=== PATIENT | male | born 1955 | race Caucasian/White ===

== ENCOUNTER 2018-09-17 21:29 | Inpatient (IN) | payer OTHER ==
[2018-09-17 22:21] LABS: ADD MAN DIFF? NO
[2018-09-17 22:25] LABS: BASOPHILS % 0.5 % (0.0-2.0); EOSINOPHILS # 0.2 10^3/ul (0.0-0.5); EOSINOPHILS % 4.4 % (0.0-7.0); HEMATOCRIT 23.9 % (42.0-52.0); HEMOGLOBIN 7.6 g/dl (14.0-18.0); LYMPHOCYTES % 18.7 % (15.0-51.0); MEAN CORPUSCULAR HEMOGLOBIN 30.8 pg (29.0-33.0); MEAN CORPUSCULAR HGB CONC 31.8 g/dl (32.0-37.0); MEAN CORPUSCULAR VOLUME 96.8 fl (82.0-101.0); MEAN PLATELET VOLUME 9.9 fl (7.4-10.4); MONOCYTE # 0.5 10^3/ul (0.3-0.9); MONOCYTES % 8.4 % (0.0-11.0); NEUTROPHIL # 3.7 10^3/ul (1.6-7.5); NEUTROPHILS % 67.5 % (39.0-77.0); PLATELET COUNT 174 10^3/UL (140-415); RED BLOOD COUNT 2.47 10^6/ul (4.70-6.10); RED CELL DISTRIBUTION WIDTH 13.9 % (11.5-14.5)
[2018-09-17 22:25] LABS: WHITE BLOOD COUNT 5.5 10^3/ul (4.8-10.8)
[2018-09-17 22:45] LABS: ANION GAP 10 (5-13); BLOOD UREA NITROGEN 89 mg/dl (7-20); CALCIUM 8.3 mg/dl (8.4-10.2); CARBON DIOXIDE 20 mmol/L (21-31); CHLORIDE 110 mmol/L (97-110); CREATININE 4.07 mg/dl (0.61-1.24); Estimated GFR 15 mL/min (>60); GLUCOSE 137 mg/dl (70-220); SODIUM 140 mmol/L (135-144)
[2018-09-17 22:57] LABS: B-TYPE NATRIURETIC PEPTIDE 6930 PG/ML (0-125); TROPONIN-I < 0.012 ng/ml (0.000-0.120)
[2018-09-17] MEDS ORDERED: ACETAMINOPHEN 325 MG TAB PO (23:30)
[2018-09-18] MEDS: ONDANSETRON 4 MG INJ IV ×2 (02:22→10:02)
[2018-09-18] MEDS ORDERED: NACL 0.9% 3 ML SYG IV (07:00)
[2018-09-18] MEDS ORDERED: ACETAMINOPHEN 325 MG TAB PO (07:00)
[2018-09-18] MEDS ORDERED: ALBUTEROL/IPRATROPIUM (NEB) 3 ML AMP HHN (07:00)
[2018-09-18 08:19] LABS: ADD MAN DIFF? NO
[2018-09-18 08:24] LABS: BASOPHILS % 0.7 % (0.0-2.0); EOSINOPHILS # 0.2 10^3/ul (0.0-0.5); EOSINOPHILS % 3.3 % (0.0-7.0); HEMATOCRIT 23.6 % (42.0-52.0); HEMOGLOBIN 7.6 g/dl (14.0-18.0); LYMPHOCYTES # 0.8 10^3/ul (0.8-2.9); MEAN CORPUSCULAR HEMOGLOBIN 31.4 pg (29.0-33.0); MEAN CORPUSCULAR HGB CONC 32.2 g/dl (32.0-37.0); MEAN CORPUSCULAR VOLUME 97.5 fl (82.0-101.0); MEAN PLATELET VOLUME 9.8 fl (7.4-10.4); MONOCYTE # 0.5 10^3/ul (0.3-0.9); MONOCYTES % 7.8 % (0.0-11.0); NEUTROPHIL # 4.3 10^3/ul (1.6-7.5); NEUTROPHILS % 73.9 % (39.0-77.0); PLATELET COUNT 164 10^3/UL (140-415); RED BLOOD COUNT 2.42 10^6/ul (4.70-6.10); RED CELL DISTRIBUTION WIDTH 13.8 % (11.5-14.5)
[2018-09-18 08:24] LABS: WHITE BLOOD COUNT 5.8 10^3/ul (4.8-10.8)
[2018-09-18 08:31] LABS: HEMOGLOBIN A1C 6.3 % (0-5.9)
[2018-09-18 08:43] LABS: ALANINE AMINOTRANSFERASE 79 IU/L (13-69); ALBUMIN 3.6 g/dl (3.3-4.9); ALBUMIN/GLOBULIN RATIO 1.02; ALKALINE PHOSPHATASE 164 IU/L (42-121); ANION GAP 9 (5-13); ASPARTATE AMINO TRANSFERASE 44 IU/L (15-46); BILIRUBIN,INDIRECT 0.4 mg/dl (0-1.1); BILIRUBIN,TOTAL 0.4 mg/dl (0.2-1.3); BLOOD UREA NITROGEN 87 mg/dl (7-20); CALCIUM 8.4 mg/dl (8.4-10.2); CARBON DIOXIDE 20 mmol/L (21-31); CHLORIDE 114 mmol/L (97-110); CHOL/HDL RATIO 2.2 RATIO; CHOLESTEROL 89 mg/dl (100-200); CREATININE 4.18 mg/dl (0.61-1.24); Estimated GFR 14 mL/min (>60); GLUCOSE 123 mg/dl (70-220); HDL CHOLESTEROL 40 mg/dl (30-78); LDL CHOLESTEROL,CALCULATED 37 mg/dl; MAGNESIUM 2.6 mg/dl (1.7-2.5); POTASSIUM 5.4 mmol/L (3.5-5.1); SODIUM 143 mmol/L (135-144); TOTAL PROTEIN 7.1 g/dl (6.1-8.1); TRIGLYCERIDES 60 mg/dl (0-149)
[2018-09-18] MEDS: SOD CHLORIDE 0.9% 1,000 ML IV ×2 (08:50→20:03)
[2018-09-18] MEDS: FERROUS SULFATE (EC) 325 MG TAB PO (08:51)
[2018-09-18] MEDS: FOLIC ACID 1 MG TAB PO (08:51)
[2018-09-18] MEDS: GABAPENTIN 300 MG CAP PO (08:51)
[2018-09-18] MEDS: ATENOLOL 50 MG TAB PO (08:52)
[2018-09-18] MEDS: HEPARIN 5,000 UNIT/1 ML VIAL SC ×2 (08:53→20:48)
[2018-09-18] MEDS: ALBUMIN HUMAN 25% 100 ML IV (09:50)
[2018-09-18] MEDS ORDERED: NA POLYST SULFON 15 GM/60 ML BTL PO (11:00)
[2018-09-18] MEDS: SODIUM POLYSTYRENE 15 GM KIT (POWDER + SORBITOL) PO (11:43)
[2018-09-18] MEDS: NA BICARBONATE 650 MG TAB PO ×2 (17:05→20:03)
[2018-09-18] MEDS: ATORVASTATIN 10 MG TAB PO (20:04)
[2018-09-19] MEDS: SOD CHLORIDE 0.9% 1,000 ML IV (00:25)
[2018-09-19 07:01] LABS: ABNORMAL IP MESSAGE 1; HEMATOCRIT 21.4 % (42.0-52.0); MEAN CORPUSCULAR HEMOGLOBIN 30.8 pg (29.0-33.0); MEAN CORPUSCULAR HGB CONC 30.8 g/dl (32.0-37.0); PLATELET COUNT 147 10^3/UL (140-415); POSITIVE DIFF @See below; RED BLOOD COUNT 2.14 10^6/ul (4.70-6.10); RED CELL DISTRIBUTION WIDTH 14.1 % (11.5-14.5)
[2018-09-19 07:01] LABS: WHITE BLOOD COUNT 5.4 10^3/ul (4.8-10.8)
[2018-09-19 07:06] LABS: ADD MAN DIFF? YES; HEMOGLOBIN 6.6 g/dl (14.0-18.0)
[2018-09-19 07:07] LABS: PATH REVIEW? YES
[2018-09-19 07:15] LABS: IRON 19 ug/dl (35-150)
[2018-09-19 07:17] LABS: ANION GAP 5 (5-13); BLOOD UREA NITROGEN 78 mg/dl (7-20); CALCIUM 7.9 mg/dl (8.4-10.2); CARBON DIOXIDE 22 mmol/L (21-31); CHLORIDE 116 mmol/L (97-110); CREATININE 4.21 mg/dl (0.61-1.24); Estimated GFR 14 mL/min (>60); GLUCOSE 131 mg/dl (70-220); MAGNESIUM 2.5 mg/dl (1.7-2.5); PHOSPHORUS 4.8 mg/dl (2.5-4.9); POTASSIUM 4.9 mmol/L (3.5-5.1); SODIUM 143 mmol/L (135-144)
[2018-09-19 07:25] LABS: % IRON SATURATION 12 % SAT (22-52); TOTAL IRON BINDING CAPACITY 164 ug/dl (241-421)
[2018-09-19 07:36] LABS: ANISOCYTOSIS 1+ (0-0); EOSINOPHILS % (M) 2 % (0-7); LYMPHOCYTES #M 0.9 10^3/ul (0.8-2.9); LYMPHOCYTES % (M) 17 % (15-51); MONOCYTE #M 0.3 10^3/ul (0.3-0.9); MONOCYTES % (M) 7 % (0-11); PLATELET ESTIMATE NORMAL; POLYCHROMASIA 1+ (0-0); SEGMENTED NEUTROPHILS (M) % 74 % (39-77); SMUDGE%M 1 % (0-0)
[2018-09-19] MEDS: GABAPENTIN 300 MG CAP PO (08:15)
[2018-09-19] MEDS: CALCITRIOL 0.25 MCG CAP PO (08:15)
[2018-09-19] MEDS: NA BICARBONATE 650 MG TAB PO ×4 (08:15→20:15)
[2018-09-19] MEDS: PANTOPRAZOLE (EC) 40 MG TAB PO (08:16)
[2018-09-19] MEDS: ATENOLOL 50 MG TAB PO (08:16)
[2018-09-19] MEDS: ASPIRIN (EC) 81 MG TAB PO (08:16)
[2018-09-19] MEDS: FOLIC ACID 1 MG TAB PO (08:16)
[2018-09-19] MEDS: FERROUS SULFATE (EC) 325 MG TAB PO (08:16)
[2018-09-19] MEDS: AMLODIPINE 10 MG TAB PO (08:16)
[2018-09-19] MEDS: HEPARIN 5,000 UNIT/1 ML VIAL SC ×2 (08:17→20:36)
[2018-09-19 08:21] LABS: ADD UMIC YES; UR ASCORBIC ACID NEGATIVE (NEGATIVE); UR BILIRUBIN (Dip) NEGATIVE (NEGATIVE); UR BLOOD (Dip) NEGATIVE (NEGATIVE); UR CLARITY CLEAR (CLEAR); UR COLOR YELLOW (YELLOW); UR GLUCOSE (Dip) NEGATIVE (NEGATIVE); UR KETONES (Dip) NEGATIVE (NEGATIVE); UR LEUKOCYTE ESTERASE (Dip) NEGATIVE Leu/ul (NEGATIVE); UR NITRITE (Dip) NEGATIVE (NEGATIVE); UR RBC 1 /HPF (0-5); UR SPECIFIC GRAVITY (Dip) 1.012 (1.003-1.030); UR TOTAL PROTEIN (Dip) 1+ mg/dl (NEGATIVE); UR UROBILINOGEN (Dip) NEGATIVE (NEGATIVE); UR WBC 0 /HPF (0-5)
[2018-09-19 08:38] LABS: CREATININE,URINE RANDOM 66.76 mg/dl (20-370)
[2018-09-19 08:38] LABS: SODIUM,URINE RANDOM 43 mmol/L (30-90)
[2018-09-19 08:42] LABS: POTASSIUM,URINE RANDOM 34.2 mmol/L (25-125)
[2018-09-19 08:42] LABS: SODIUM,URINE RANDOM 43 mmol/L (30-90)
[2018-09-19 09:12] LABS: OCCULT BLOOD STOOL NEGATIVE (NEGATIVE)
[2018-09-19] MEDS: BUMETANIDE 1 MG INJ IV (09:40)
[2018-09-19] MEDS: SOD FERRIC GLUC COMPLX 125 MG in SOD CHLORIDE 0.9% 100 ML IVPB (14:16)
[2018-09-19 14:28] LABS: CREATINE KINASE 88 IU/L (23-200)
[2018-09-19 14:40] LABS: TROPONIN-I < 0.012 ng/ml (0.000-0.120)
[2018-09-19] MEDS: EPOETIN ALFA-EPBX (NON-ESRD 10,000 UNIT/ML VIAL SC (16:37)
[2018-09-19 18:15] LABS: HEMATOCRIT 24.3 % (42.0-52.0); HEMOGLOBIN 7.6 g/dl (14.0-18.0)
[2018-09-19 18:37] LABS: CREATINE KINASE 86 IU/L (23-200)
[2018-09-19 18:52] LABS: CK INDEX 1.1; CK-MB 0.95 ng/ml (0.0-2.4); TROPONIN-I < 0.012 ng/ml (0.000-0.120)
[2018-09-19] MEDS: ATORVASTATIN 10 MG TAB PO (20:15)
[2018-09-20 06:25] LABS: ADD MAN DIFF? NO
[2018-09-20 06:29] LABS: WHITE BLOOD COUNT 5.7 10^3/ul (4.8-10.8)
[2018-09-20 06:29] LABS: BASOPHILS % 0.7 % (0.0-2.0); EOSINOPHILS # 0.2 10^3/ul (0.0-0.5); EOSINOPHILS % 3.1 % (0.0-7.0); HEMATOCRIT 24.1 % (42.0-52.0); HEMOGLOBIN 7.5 g/dl (14.0-18.0); LYMPHOCYTES # 0.8 10^3/ul (0.8-2.9); LYMPHOCYTES % 13.8 % (15.0-51.0); MEAN CORPUSCULAR HEMOGLOBIN 30.4 pg (29.0-33.0); MEAN CORPUSCULAR HGB CONC 31.1 g/dl (32.0-37.0); MEAN CORPUSCULAR VOLUME 97.6 fl (82.0-101.0); MEAN PLATELET VOLUME 10.2 fl (7.4-10.4); MONOCYTE # 0.4 10^3/ul (0.3-0.9); MONOCYTES % 7.7 % (0.0-11.0); NEUTROPHIL # 4.3 10^3/ul (1.6-7.5); NEUTROPHILS % 74.2 % (39.0-77.0); PLATELET COUNT 148 10^3/UL (140-415); RED BLOOD COUNT 2.47 10^6/ul (4.70-6.10)
[2018-09-20 06:53] LABS: ALANINE AMINOTRANSFERASE 54 IU/L (13-69); ALBUMIN 3.2 g/dl (3.3-4.9); ALKALINE PHOSPHATASE 99 IU/L (42-121); ASPARTATE AMINO TRANSFERASE 19 IU/L (15-46); BILIRUBIN,INDIRECT 0.4 mg/dl (0-1.1); BILIRUBIN,TOTAL 0.4 mg/dl (0.2-1.3); TOTAL PROTEIN 5.8 g/dl (6.1-8.1)
[2018-09-20 06:56] LABS: ANION GAP 6 (5-13); BLOOD UREA NITROGEN 81 mg/dl (7-20); CARBON DIOXIDE 23 mmol/L (21-31); CHLORIDE 113 mmol/L (97-110); CREATININE 4.54 mg/dl (0.61-1.24); Estimated GFR 13 mL/min (>60); GLUCOSE 123 mg/dl (70-220); MAGNESIUM 2.4 mg/dl (1.7-2.5); PHOSPHORUS 4.9 mg/dl (2.5-4.9); POTASSIUM 4.7 mmol/L (3.5-5.1); SODIUM 142 mmol/L (135-144)
[2018-09-20] MEDS: FOLIC ACID 1 MG TAB PO (08:25)
[2018-09-20] MEDS: AMLODIPINE 10 MG TAB PO (08:25)
[2018-09-20] MEDS: GABAPENTIN 300 MG CAP PO (08:25)
[2018-09-20] MEDS: ASPIRIN (EC) 81 MG TAB PO (08:25)
[2018-09-20] MEDS: NA BICARBONATE 650 MG TAB PO ×4 (08:25→21:31)
[2018-09-20] MEDS: ATENOLOL 50 MG TAB PO (08:25)
[2018-09-20] MEDS: BUMETANIDE 1 MG INJ IV (08:26)
[2018-09-20] MEDS: FERROUS SULFATE (EC) 325 MG TAB PO (08:26)
[2018-09-20] MEDS: CALCITRIOL 0.25 MCG CAP PO (08:26)
[2018-09-20] MEDS: PANTOPRAZOLE (EC) 40 MG TAB PO (08:28)
[2018-09-20] MEDS: HEPARIN 5,000 UNIT/1 ML VIAL SC ×2 (08:34→22:56)
[2018-09-20] MEDS: SOD FERRIC GLUC COMPLX 125 MG in SOD CHLORIDE 0.9% 100 ML IVPB (13:00)
[2018-09-20 13:53] LABS: IMMEDIATE SPIN CROSSMATCH 1 3
[2018-09-20 17:17] LABS: CREATININE, RANDOM URINE 63 mg/dL (20-320); MICROALBUMIN 28.1 mg/dL; MICROALBUMIN/CREATININE RATIO 446 (<30)
[2018-09-20] MEDS: FUROSEMIDE 20 MG INJ IV (18:10)
[2018-09-20] MEDS: ATORVASTATIN 10 MG TAB PO (21:31)
[2018-09-21 06:52] LABS: ANION GAP 9 (5-13); BLOOD UREA NITROGEN 87 mg/dl (7-20); CALCIUM 8.1 mg/dl (8.4-10.2); CARBON DIOXIDE 22 mmol/L (21-31); CHLORIDE 111 mmol/L (97-110); CREATININE 4.53 mg/dl (0.61-1.24); Estimated GFR 13 mL/min (>60); GLUCOSE 144 mg/dl (70-220); MAGNESIUM 2.3 mg/dl (1.7-2.5); PHOSPHORUS 5.1 mg/dl (2.5-4.9); POTASSIUM 5.2 mmol/L (3.5-5.1); SODIUM 142 mmol/L (135-144)
[2018-09-21] MEDS: PANTOPRAZOLE (EC) 40 MG TAB PO (08:27)
[2018-09-21] MEDS: FERROUS SULFATE (EC) 325 MG TAB PO (08:28)
[2018-09-21] MEDS: NA BICARBONATE 650 MG TAB PO ×4 (08:28→20:14)
[2018-09-21] MEDS: FOLIC ACID 1 MG TAB PO (08:28)
[2018-09-21] MEDS: ASPIRIN (EC) 81 MG TAB PO (08:28)
[2018-09-21] MEDS: ATENOLOL 50 MG TAB PO (08:28)
[2018-09-21] MEDS: CALCITRIOL 0.25 MCG CAP PO (08:28)
[2018-09-21] MEDS: GABAPENTIN 300 MG CAP PO (08:28)
[2018-09-21] MEDS: BUMETANIDE 1 MG INJ IV (08:28)
[2018-09-21] MEDS: AMLODIPINE 10 MG TAB PO (08:28)
[2018-09-21] MEDS: HEPARIN 5,000 UNIT/1 ML VIAL SC ×2 (08:33→20:23)
[2018-09-21] MEDS: SEVELAMER CARBONATE 800 MG TABLET PO ×2 (11:53→17:12)
[2018-09-21] MEDS: SOD FERRIC GLUC COMPLX 125 MG in SOD CHLORIDE 0.9% 100 ML IVPB (12:18)
[2018-09-21] MEDS: ALBUMIN HUMAN 25% 100 ML IV (17:14)
[2018-09-21] MEDS: EPOETIN ALFA-EPBX (NON-ESRD 10,000 UNIT/ML VIAL SC (17:15)
[2018-09-21 18:04] LABS: AADO2 Arterial 105.4 mmHg (7.0-24.0); Allen Test ACCEPTAB; Arterial Base Excess -3.8 mmol/L (-3.0-3); Arterial Blood Gas Oxygen Sat 89.1 mmHG (95.0-98.0); Arterial COHb 0 % (0.0-3.0); Arterial Fraction of Oxyhgb 88.7 % (93.0-99.0); Arterial HCO3 21.6 mmol/L (22.0-26.0); Arterial MetHb 0.5 % (0.0-1.5); Arterial pCO2 40.6 mmhg (35-45); MODE NASAL CANNULA; Site Left Radial
[2018-09-21 18:26] LABS: ANION GAP 9 (5-13); BLOOD UREA NITROGEN 86 mg/dl (7-20); CARBON DIOXIDE 22 mmol/L (21-31); CHLORIDE 109 mmol/L (97-110); CREATININE 4.55 mg/dl (0.61-1.24); Estimated GFR 13 mL/min (>60); GLUCOSE 184 mg/dl (70-220); POTASSIUM 5.2 mmol/L (3.5-5.1); SODIUM 140 mmol/L (135-144)
[2018-09-21] MEDS: BUMETANIDE 3 MG in DEXTROSE 5% 18 ML IV (20:13)
[2018-09-21] MEDS: ATORVASTATIN 10 MG TAB PO (20:14)
[2018-09-22 07:58] LABS: ADD MAN DIFF? NO
[2018-09-22 08:12] LABS: WHITE BLOOD COUNT 6.2 10^3/ul (4.8-10.8)
[2018-09-22 08:12] LABS: BASOPHILS % 0.6 % (0.0-2.0); EOSINOPHILS # 0.2 10^3/ul (0.0-0.5); EOSINOPHILS % 2.6 % (0.0-7.0); HEMATOCRIT 26.9 % (42.0-52.0); HEMOGLOBIN 8.6 g/dl (14.0-18.0); LYMPHOCYTES # 0.7 10^3/ul (0.8-2.9); LYMPHOCYTES % 11.4 % (15.0-51.0); MEAN CORPUSCULAR HEMOGLOBIN 30.7 pg (29.0-33.0); MEAN CORPUSCULAR VOLUME 96.1 fl (82.0-101.0); MEAN PLATELET VOLUME 10.2 fl (7.4-10.4); MONOCYTE # 0.6 10^3/ul (0.3-0.9); MONOCYTES % 9.5 % (0.0-11.0); NEUTROPHIL # 4.6 10^3/ul (1.6-7.5); NEUTROPHILS % 74.5 % (39.0-77.0); PLATELET COUNT 153 10^3/UL (140-415); RED CELL DISTRIBUTION WIDTH 15.5 % (11.5-14.5)
[2018-09-22] MEDS: SEVELAMER CARBONATE 800 MG TABLET PO ×3 (08:23→17:36)
[2018-09-22] MEDS: CALCITRIOL 0.25 MCG CAP PO (08:23)
[2018-09-22 08:24] LABS: ANION GAP 11 (5-13); BLOOD UREA NITROGEN 92 mg/dl (7-20); CALCIUM 8.2 mg/dl (8.4-10.2); CARBON DIOXIDE 21 mmol/L (21-31); CHLORIDE 110 mmol/L (97-110); CREATININE 4.52 mg/dl (0.61-1.24); Estimated GFR 13 mL/min (>60); GLUCOSE 139 mg/dl (70-220); MAGNESIUM 2.3 mg/dl (1.7-2.5); SODIUM 142 mmol/L (135-144)
[2018-09-22] MEDS: FERROUS SULFATE (EC) 325 MG TAB PO (08:24)
[2018-09-22] MEDS: PANTOPRAZOLE (EC) 40 MG TAB PO (08:24)
[2018-09-22] MEDS: NA BICARBONATE 650 MG TAB PO (08:24)
[2018-09-22] MEDS: GABAPENTIN 300 MG CAP PO (08:24)
[2018-09-22] MEDS: AMLODIPINE 10 MG TAB PO (08:24)
[2018-09-22] MEDS: FOLIC ACID 1 MG TAB PO (08:24)
[2018-09-22] MEDS: ASPIRIN (EC) 81 MG TAB PO (08:24)
[2018-09-22] MEDS: ATENOLOL 50 MG TAB PO (08:25)
[2018-09-22] MEDS: BUMETANIDE 1 MG INJ IV (08:27)
[2018-09-22] MEDS: HEPARIN 5,000 UNIT/1 ML VIAL SC ×2 (08:46→20:28)
[2018-09-22] MEDS ORDERED: BUMETANIDE 1 MG INJ IV (09:00)
[2018-09-22] MEDS: SOD FERRIC GLUC COMPLX 125 MG in SOD CHLORIDE 0.9% 100 ML IVPB (13:25)
[2018-09-22] MEDS: BUMETANIDE 2 MG in DEXTROSE 5% 17 ML IV (17:37)
[2018-09-22] MEDS: ATORVASTATIN 10 MG TAB PO (20:25)
[2018-09-23 06:48] LABS: ADD MAN DIFF? NO
[2018-09-23] MEDS: BUMETANIDE 2 MG in DEXTROSE 5% 17 ML IV ×2 (06:51→17:09)
[2018-09-23 06:54] LABS: WHITE BLOOD COUNT 6.6 10^3/ul (4.8-10.8)
[2018-09-23 06:54] LABS: BASOPHILS % 0.6 % (0.0-2.0); EOSINOPHILS # 0.2 10^3/ul (0.0-0.5); HEMATOCRIT 26.1 % (42.0-52.0); HEMOGLOBIN 8.4 g/dl (14.0-18.0); LYMPHOCYTES % 14.4 % (15.0-51.0); MEAN CORPUSCULAR HEMOGLOBIN 31.2 pg (29.0-33.0); MEAN CORPUSCULAR HGB CONC 32.2 g/dl (32.0-37.0); MEAN PLATELET VOLUME 10.3 fl (7.4-10.4); MONOCYTE # 0.6 10^3/ul (0.3-0.9); MONOCYTES % 9.1 % (0.0-11.0); NEUTROPHIL # 4.7 10^3/ul (1.6-7.5); NEUTROPHILS % 71.5 % (39.0-77.0); NUCLEATED RED BLOOD CELLS% 0.6 /100WBC (0.0-0.0); PLATELET COUNT 149 10^3/UL (140-415); RED BLOOD COUNT 2.69 10^6/ul (4.70-6.10); RED CELL DISTRIBUTION WIDTH 15.8 % (11.5-14.5)
[2018-09-23 07:14] LABS: MAGNESIUM 2.2 mg/dl (1.7-2.5)
[2018-09-23 07:14] LABS: PHOSPHORUS 4.8 mg/dl (2.5-4.9)
[2018-09-23 07:19] LABS: ANION GAP 9 (5-13); BLOOD UREA NITROGEN 98 mg/dl (7-20); CALCIUM 8.3 mg/dl (8.4-10.2); CARBON DIOXIDE 23 mmol/L (21-31); CHLORIDE 108 mmol/L (97-110); CREATININE 4.91 mg/dl (0.61-1.24); Estimated GFR 12 mL/min (>60); GLUCOSE 126 mg/dl (70-220); POTASSIUM 4.9 mmol/L (3.5-5.1); SODIUM 140 mmol/L (135-144)
[2018-09-23] MEDS: SEVELAMER CARBONATE 800 MG TABLET PO ×3 (08:05→17:14)
[2018-09-23] MEDS: FERROUS SULFATE (EC) 325 MG TAB PO (08:05)
[2018-09-23] MEDS: PANTOPRAZOLE (EC) 40 MG TAB PO (08:05)
[2018-09-23] MEDS: GABAPENTIN 300 MG CAP PO (08:05)
[2018-09-23] MEDS: CALCITRIOL 0.25 MCG CAP PO (08:05)
[2018-09-23] MEDS: AMLODIPINE 10 MG TAB PO (08:05)
[2018-09-23] MEDS: FOLIC ACID 1 MG TAB PO (08:06)
[2018-09-23] MEDS: ATENOLOL 50 MG TAB PO (08:06)
[2018-09-23] MEDS: ASPIRIN (EC) 81 MG TAB PO (08:06)
[2018-09-23] MEDS: HEPARIN 5,000 UNIT/1 ML VIAL SC ×2 (08:10→20:44)
[2018-09-23] MEDS: SOD FERRIC GLUC COMPLX 125 MG in SOD CHLORIDE 0.9% 100 ML IVPB (12:43)
[2018-09-23] MEDS: EPOETIN ALFA-EPBX (NON-ESRD 10,000 UNIT/ML VIAL SC (17:08)
[2018-09-23] MEDS: ATORVASTATIN 10 MG TAB PO (20:38)
[2018-09-24] MEDS: BUMETANIDE 2 MG in DEXTROSE 5% 17 ML IV ×2 (05:02→18:56)
[2018-09-24 07:06] LABS: ADD MAN DIFF? NO
[2018-09-24 07:09] LABS: BASOPHIL # 0.1 10^3/ul (0.0-0.1); BASOPHILS % 0.9 % (0.0-2.0); EOSINOPHILS # 0.2 10^3/ul (0.0-0.5); EOSINOPHILS % 3.1 % (0.0-7.0); HEMOGLOBIN 8.5 g/dl (14.0-18.0); LYMPHOCYTES # 0.8 10^3/ul (0.8-2.9); LYMPHOCYTES % 13.9 % (15.0-51.0); MEAN CORPUSCULAR HEMOGLOBIN 30.4 pg (29.0-33.0); MEAN CORPUSCULAR HGB CONC 31.5 g/dl (32.0-37.0); MEAN CORPUSCULAR VOLUME 96.4 fl (82.0-101.0); MEAN PLATELET VOLUME 10.5 fl (7.4-10.4); MONOCYTE # 0.5 10^3/ul (0.3-0.9); MONOCYTES % 8.2 % (0.0-11.0); NEUTROPHIL # 4.2 10^3/ul (1.6-7.5); NEUTROPHILS % 72.7 % (39.0-77.0); PLATELET COUNT 160 10^3/UL (140-415); RED CELL DISTRIBUTION WIDTH 15.9 % (11.5-14.5)
[2018-09-24 07:09] LABS: WHITE BLOOD COUNT 5.8 10^3/ul (4.8-10.8)
[2018-09-24 07:30] LABS: MAGNESIUM 2.2 mg/dl (1.7-2.5)
[2018-09-24 07:30] LABS: PHOSPHORUS 4.8 mg/dl (2.5-4.9)
[2018-09-24 07:32] LABS: ANION GAP 9 (5-13); BLOOD UREA NITROGEN 104 mg/dl (7-20); CALCIUM 8.4 mg/dl (8.4-10.2); CARBON DIOXIDE 22 mmol/L (21-31); CHLORIDE 106 mmol/L (97-110); CREATININE 5.44 mg/dl (0.61-1.24); Estimated GFR 11 mL/min (>60); GLUCOSE 210 mg/dl (70-220); POTASSIUM 4.7 mmol/L (3.5-5.1); SODIUM 137 mmol/L (135-144)
[2018-09-24] MEDS: SEVELAMER CARBONATE 800 MG TABLET PO ×3 (10:19→18:56)
[2018-09-24] MEDS: GABAPENTIN 300 MG CAP PO (10:20)
[2018-09-24] MEDS: FERROUS SULFATE (EC) 325 MG TAB PO (10:20)
[2018-09-24] MEDS: PANTOPRAZOLE (EC) 40 MG TAB PO (10:20)
[2018-09-24] MEDS: FOLIC ACID 1 MG TAB PO (10:20)
[2018-09-24] MEDS: CALCITRIOL 0.25 MCG CAP PO (10:20)
[2018-09-24] MEDS: ASPIRIN (EC) 81 MG TAB PO (10:20)
[2018-09-24] MEDS: ATENOLOL 50 MG TAB PO (10:21)
[2018-09-24] MEDS: AMLODIPINE 10 MG TAB PO (10:21)
[2018-09-24] MEDS: HEPARIN 5,000 UNIT/1 ML VIAL SC ×2 (10:40→20:34)
[2018-09-24] MEDS: ATORVASTATIN 10 MG TAB PO (20:28)
[2018-09-25] MEDS: BUMETANIDE 2 MG in DEXTROSE 5% 17 ML IV ×3 (05:14→17:21)
[2018-09-25] MEDS: SEVELAMER CARBONATE 800 MG TABLET PO ×3 (08:07→17:21)
[2018-09-25] MEDS: PANTOPRAZOLE (EC) 40 MG TAB PO (08:07)
[2018-09-25] MEDS: GABAPENTIN 300 MG CAP PO (08:07)
[2018-09-25] MEDS: CALCITRIOL 0.25 MCG CAP PO (08:07)
[2018-09-25] MEDS: ATENOLOL 50 MG TAB PO (08:08)
[2018-09-25] MEDS: AMLODIPINE 10 MG TAB PO (08:08)
[2018-09-25] MEDS: FERROUS SULFATE (EC) 325 MG TAB PO (08:08)
[2018-09-25] MEDS: FOLIC ACID 1 MG TAB PO (08:09)
[2018-09-25] MEDS: ASPIRIN (EC) 81 MG TAB PO (08:09)
[2018-09-25] MEDS: HEPARIN 5,000 UNIT/1 ML VIAL SC ×2 (09:21→20:07)
[2018-09-25 12:42] LABS: ANION GAP 12 (5-13); BLOOD UREA NITROGEN 108 mg/dl (7-20); CALCIUM 8.5 mg/dl (8.4-10.2); CARBON DIOXIDE 22 mmol/L (21-31); CHLORIDE 104 mmol/L (97-110); CREATININE 5.29 mg/dl (0.61-1.24); Estimated GFR 11 mL/min (>60); GLUCOSE 209 mg/dl (70-220); POTASSIUM 4.4 mmol/L (3.5-5.1); SODIUM 138 mmol/L (135-144)
[2018-09-25] MEDS: ATORVASTATIN 10 MG TAB PO (20:01)
[2018-09-26] MEDS: FERROUS SULFATE (EC) 325 MG TAB PO (08:46)
[2018-09-26] MEDS: SEVELAMER CARBONATE 800 MG TABLET PO ×2 (08:46→12:33)
[2018-09-26] MEDS: ASPIRIN (EC) 81 MG TAB PO (08:47)
[2018-09-26] MEDS: PANTOPRAZOLE (EC) 40 MG TAB PO (08:47)
[2018-09-26] MEDS: FOLIC ACID 1 MG TAB PO (08:47)
[2018-09-26] MEDS: CALCITRIOL 0.25 MCG CAP PO (08:47)
[2018-09-26] MEDS: GABAPENTIN 300 MG CAP PO (08:47)
[2018-09-26] MEDS: AMLODIPINE 10 MG TAB PO (08:47)
[2018-09-26] MEDS: ATENOLOL 50 MG TAB PO (08:48)
[2018-09-26 09:02] LABS: ANION GAP 13 (5-13); BLOOD UREA NITROGEN 115 mg/dl (7-20); CALCIUM 8.9 mg/dl (8.4-10.2); CARBON DIOXIDE 23 mmol/L (21-31); CHLORIDE 104 mmol/L (97-110); Estimated GFR 11 mL/min (>60); GLUCOSE 171 mg/dl (70-220); POTASSIUM 4.8 mmol/L (3.5-5.1); SODIUM 140 mmol/L (135-144)
[2018-09-26] MEDS: HEPARIN 5,000 UNIT/1 ML VIAL SC (09:30)
[2018-09-26] MEDS: BUMETANIDE 2 MG in DEXTROSE 5% 17 ML IV (10:45)
== END 2018-09-26 16:16 | disposition home or self-care (01) | DRG 291 ==
LOC: TEL 09-18 13:36 → E/R 21:29 → TEL 23:18
PROC: 30233N1 Transfusion of Nonautologous Red Blood Cells into Peripheral Vein, Percutaneous Approach (ICD-10-PCS; principal; 2018-09-19)
DX: I13.2 Hypertensive heart and chronic kidney disease with heart failure and with stage 5 chronic kidney disease, or end stage renal disease (principal); I50.33 Acute on chronic diastolic (congestive) heart failure; N17.9 Acute kidney failure, unspecified; E87.2 Acidosis; N18.5 Chronic kidney disease, stage 5; D63.1 Anemia in chronic kidney disease; E87.5 Hyperkalemia; E11.22 Type 2 diabetes mellitus with diabetic chronic kidney disease; E78.5 Hyperlipidemia, unspecified; E83.39 Other disorders of phosphorus metabolism
CPT/HCPCS: 36415; 36430; 36600; 71045; 76705; 76775; 80048; 80053; 80061; 80076; 81001; 81003; 82043; 82270; 82436; 82550; 82553; 82728; 82803; 82962; 83036; 83540; 83735; 83880; 84100; 84133; 84155; 84300; 84443; 84484; 85014; 85018; 85025; 86850; 86900; 86901; 86920; 93005; 93306; 99285-25

== ENCOUNTER 2018-09-28 15:41 | Inpatient (IN) | payer OTHER ==
[2018-09-28 20:19] LABS: ADD UMIC YES; UR ASCORBIC ACID NEGATIVE (NEGATIVE); UR BILIRUBIN (Dip) NEGATIVE (NEGATIVE); UR BLOOD (Dip) NEGATIVE (NEGATIVE); UR CLARITY CLEAR (CLEAR); UR COLOR YELLOW (YELLOW); UR GLUCOSE (Dip) NEGATIVE (NEGATIVE); UR KETONES (Dip) NEGATIVE (NEGATIVE); UR LEUKOCYTE ESTERASE (Dip) NEGATIVE Leu/ul (NEGATIVE); UR NITRITE (Dip) NEGATIVE (NEGATIVE); UR RBC 0 /HPF (0-5); UR SPECIFIC GRAVITY (Dip) 1.011 (1.003-1.030); UR TOTAL PROTEIN (Dip) 1+ mg/dl (NEGATIVE); UR UROBILINOGEN (Dip) NEGATIVE (NEGATIVE); UR WBC 0 /HPF (0-5)
[2018-09-28 20:29] LABS: ADD MAN DIFF? NO
[2018-09-28] MEDS ORDERED: morphine 2 MG INJ IV (20:30)
[2018-09-28] MEDS ORDERED: ONDANSETRON 4 MG INJ IV (20:30)
[2018-09-28] MEDS ORDERED: MAGNESIUM HYDROXIDE 30ML CUP PO (20:30)
[2018-09-28] MEDS ORDERED: hydrALAzine 20 MG INJ IV (20:30)
[2018-09-28] MEDS ORDERED: DOCUSATE SODIUM 100 MG CAP PO (20:30)
[2018-09-28] MEDS ORDERED: ACETAMINOPHEN 325 MG TAB PO (20:30)
[2018-09-28] MEDS ORDERED: LORAZEPAM 2 MG INJ IV (20:30)
[2018-09-28] MEDS ORDERED: NITROGLYCERIN (SL) 0.4 MG TAB SL (20:30)
[2018-09-28] MEDS ORDERED: HYDROCODONE/APAP (5/325) TAB PO (20:30)
[2018-09-28] MEDS ORDERED: ALBUTEROL/IPRATROPIUM (NEB) 3 ML AMP HHN (20:30)
[2018-09-28] MEDS ORDERED: NACL 0.9% 3 ML SYG IV (20:30)
[2018-09-28 20:32] LABS: WHITE BLOOD COUNT 5.6 10^3/ul (4.8-10.8)
[2018-09-28 20:32] LABS: BASOPHIL # 0.1 10^3/ul (0.0-0.1); BASOPHILS % 0.9 % (0.0-2.0); EOSINOPHILS # 0.2 10^3/ul (0.0-0.5); EOSINOPHILS % 3.8 % (0.0-7.0); HEMATOCRIT 29.6 % (42.0-52.0); HEMOGLOBIN 9.5 g/dl (14.0-18.0); LYMPHOCYTES # 0.9 10^3/ul (0.8-2.9); LYMPHOCYTES % 15.3 % (15.0-51.0); MEAN CORPUSCULAR HEMOGLOBIN 30.9 pg (29.0-33.0); MEAN CORPUSCULAR HGB CONC 32.1 g/dl (32.0-37.0); MEAN CORPUSCULAR VOLUME 96.4 fl (82.0-101.0); MEAN PLATELET VOLUME 10.8 fl (7.4-10.4); MONOCYTE # 0.4 10^3/ul (0.3-0.9); MONOCYTES % 7.9 % (0.0-11.0); NEUTROPHILS % 71.4 % (39.0-77.0); PLATELET COUNT 198 10^3/UL (140-415); RED BLOOD COUNT 3.07 10^6/ul (4.70-6.10); RED CELL DISTRIBUTION WIDTH 16.9 % (11.5-14.5)
[2018-09-28 20:44] LABS: ALANINE AMINOTRANSFERASE 69 IU/L (13-69); ALBUMIN 3.9 g/dl (3.3-4.9); ALBUMIN/GLOBULIN RATIO 1.18; ALKALINE PHOSPHATASE 150 IU/L (42-121); ANION GAP 13 (5-13); ASPARTATE AMINO TRANSFERASE 49 IU/L (15-46); BILIRUBIN,INDIRECT 0.5 mg/dl (0-1.1); BILIRUBIN,TOTAL 0.5 mg/dl (0.2-1.3); BLOOD UREA NITROGEN 118 mg/dl (7-20); CARBON DIOXIDE 21 mmol/L (21-31); CHLORIDE 108 mmol/L (97-110); CREATININE 4.74 mg/dl (0.61-1.24); Estimated GFR 12 mL/min (>60); GLUCOSE 139 mg/dl (70-220); LIPASE 89 U/L (23-300); POTASSIUM 4.4 mmol/L (3.5-5.1); SODIUM 142 mmol/L (135-144); TOTAL PROTEIN 7.2 g/dl (6.1-8.1)
[2018-09-28 20:51] LABS: INR 0.98; PARTIAL THROMBOPLASTIN TIME 30.2 Sec (23.0-35.0); PROTIME 13.1 Sec (11.9-14.9)
[2018-09-28 20:56] LABS: TROPONIN-I < 0.012 ng/ml (0.000-0.120)
[2018-09-28] MEDS ORDERED: GLUCOSE GEL 15 GRAM TUBE PO ×2 (21:00)
[2018-09-28] MEDS: LEVOFLOXACIN 750MG/D5W (PMX) 150 ML IVPB (21:00)
[2018-09-28] MEDS ORDERED: GLUCAGON 1 MG INJ IM (21:00)
[2018-09-28] MEDS ORDERED: GLUCOSE GEL 15 GRAM TUBE BUCCAL (21:00)
[2018-09-28] MEDS ORDERED: DEXTROSE 50% 50 ML SYRINGE IV ×2 (21:00)
[2018-09-28] MEDS ORDERED: LEVOFLOXACIN 750MG/D5W (PMX) 150 ML IVPB (21:00)
[2018-09-28 21:02] LABS: FREE T4 (FREE THYROXINE) 1.34 ng/dl (0.78-2.44)
[2018-09-28] MEDS: HEPARIN 5,000 UNIT/1 ML VIAL SC (23:33)
[2018-09-28] MEDS: ATORVASTATIN 10 MG TAB PO (23:33)
[2018-09-29] MEDS: INSULIN ASPART [NOVOLOG] 3 ML PEN SC ×5 (01:00→18:29)
[2018-09-29] MEDS ORDERED: ACCU-CHEK XX (02:00)
[2018-09-29 06:10] LABS: ADD MAN DIFF? NO
[2018-09-29 06:12] LABS: BASOPHIL # 0.1 10^3/ul (0.0-0.1); BASOPHILS % 1.1 % (0.0-2.0); EOSINOPHILS # 0.2 10^3/ul (0.0-0.5); EOSINOPHILS % 5.1 % (0.0-7.0); HEMATOCRIT 28.5 % (42.0-52.0); HEMOGLOBIN 9.1 g/dl (14.0-18.0); LYMPHOCYTES # 0.8 10^3/ul (0.8-2.9); MEAN CORPUSCULAR HGB CONC 31.9 g/dl (32.0-37.0); MEAN CORPUSCULAR VOLUME 96.9 fl (82.0-101.0); MEAN PLATELET VOLUME 10.6 fl (7.4-10.4); MONOCYTE # 0.4 10^3/ul (0.3-0.9); MONOCYTES % 8.2 % (0.0-11.0); NEUTROPHIL # 3.3 10^3/ul (1.6-7.5); PLATELET COUNT 182 10^3/UL (140-415); RED BLOOD COUNT 2.94 10^6/ul (4.70-6.10)
[2018-09-29 06:12] LABS: WHITE BLOOD COUNT 4.8 10^3/ul (4.8-10.8)
[2018-09-29 06:42] LABS: HEMOGLOBIN A1C 5.9 % (0-5.9)
[2018-09-29 06:51] LABS: ANION GAP 10 (5-13); BLOOD UREA NITROGEN 113 mg/dl (7-20); CALCIUM 8.8 mg/dl (8.4-10.2); CARBON DIOXIDE 22 mmol/L (21-31); CHLORIDE 112 mmol/L (97-110); CREATININE 4.37 mg/dl (0.61-1.24); Estimated GFR 14 mL/min (>60); GLUCOSE 120 mg/dl (70-220); MAGNESIUM 2.3 mg/dl (1.7-2.5); PHOSPHORUS 5.3 mg/dl (2.5-4.9); POTASSIUM 4.3 mmol/L (3.5-5.1); SODIUM 144 mmol/L (135-144)
[2018-09-29 07:02] LABS: CHOL/HDL RATIO 2.3 RATIO; HDL CHOLESTEROL 38 mg/dl (30-78); LDL CHOLESTEROL,CALCULATED 35 mg/dl; TRIGLYCERIDES 81 mg/dl (0-149)
[2018-09-29 07:02] LABS: CHOLESTEROL 89 mg/dl (100-200)
[2018-09-29] MEDS ORDERED: NON-FORMULARY/PATIENT OWN MED (Omeprazole* 20 MG) PO (09:00)
[2018-09-29] MEDS: HEPARIN 5,000 UNIT/1 ML VIAL SC ×2 (09:00→23:06)
[2018-09-29] MEDS: BUMETANIDE 1 MG INJ IV ×2 (13:19→18:00)
[2018-09-29] MEDS: AMLODIPINE 10 MG TAB PO (13:19)
[2018-09-29] MEDS ORDERED: HEPARIN 1000 UNITS/NS (A-LINE) 1,000 ML (14:11)
[2018-09-29] MEDS ORDERED: SOD CHLORIDE 0.9% 500 ML (14:11)
[2018-09-29] MEDS ORDERED: LIDOCAINE 1% (MDV) 20 ML INJ (14:11)
[2018-09-29] MEDS ORDERED: IODIXANOL LOCM 100 ML BTL (14:11)
[2018-09-29] MEDS ORDERED: MIDAZOLAM 1 MG/ML 2 ML INJ (14:11)
[2018-09-29] MEDS ORDERED: HEPARIN 1000 UNITS/ML 10 ML INJ (14:11)
[2018-09-29] MEDS ORDERED: FENTAnyl 50 MCG/ML VIAL (14:12)
[2018-09-29] MEDS: ASPIRIN (EC) 81 MG TAB PO (16:00)
[2018-09-29] MEDS: LANSOPRAZOLE 30 MG CAP PO (16:00)
[2018-09-29] MEDS: ATENOLOL 50 MG TAB PO (16:00)
[2018-09-29] MEDS: CALCITRIOL 0.25 MCG CAP PO (16:00)
[2018-09-29] MEDS: FERROUS SULFATE (EC) 325 MG TAB PO (16:00)
[2018-09-29] MEDS: FOLIC ACID 1 MG TAB PO (16:00)
[2018-09-29] MEDS: GABAPENTIN 300 MG CAP PO (16:00)
[2018-09-29] MEDS: SEVELAMER CARBONATE 800 MG TABLET PO (18:26)
[2018-09-29] MEDS ORDERED: ALBUMIN HUMAN 25% 100 ML IV (20:30)
[2018-09-29] MEDS: MANNITOL 25% 50 ML IV (20:30)
[2018-09-29 20:32] LABS: HEPATITIS B SURFACE ANTIGEN NEGATIVE (NEGATIVE)
[2018-09-29 20:49] LABS: HEPATITIS B SURFACE ANTIBODY NEGATIVE (NEGATIVE)
[2018-09-29] MEDS: Insulin NOVOLOG SS MILD Algorithm (SS with meals and bedtime) SC (21:00)
[2018-09-29] MEDS ORDERED: INSULIN ASPART [NOVOLOG] 3 ML PEN SC (21:00)
[2018-09-29] MEDS: HEPARIN 1000 UNITS/ML 10 ML INJ CATHETER (22:51)
[2018-09-29] MEDS: ATORVASTATIN 10 MG TAB PO (23:00)
[2018-09-30 05:37] LABS: ADD MAN DIFF? NO
[2018-09-30 05:43] LABS: WHITE BLOOD COUNT 4.6 10^3/ul (4.8-10.8)
[2018-09-30 05:43] LABS: ABNORMAL IP MESSAGE 1; BASOPHIL # 0.1 10^3/ul (0.0-0.1); BASOPHILS % 1.1 % (0.0-2.0); EOSINOPHILS # 0.2 10^3/ul (0.0-0.5); HEMATOCRIT 30.6 % (42.0-52.0); HEMOGLOBIN 9.9 g/dl (14.0-18.0); LYMPHOCYTES # 0.6 10^3/ul (0.8-2.9); MEAN CORPUSCULAR HEMOGLOBIN 30.6 pg (29.0-33.0); MEAN CORPUSCULAR HGB CONC 32.4 g/dl (32.0-37.0); MEAN CORPUSCULAR VOLUME 94.4 fl (82.0-101.0); MEAN PLATELET VOLUME 10.2 fl (7.4-10.4); MONOCYTE # 0.4 10^3/ul (0.3-0.9); MONOCYTES % 9.5 % (0.0-11.0); NEUTROPHIL # 3.3 10^3/ul (1.6-7.5); PLATELET COUNT 177 10^3/UL (140-415); POSITIVE DIFF @See below; RED BLOOD COUNT 3.24 10^6/ul (4.70-6.10); RED CELL DISTRIBUTION WIDTH 16.6 % (11.5-14.5)
[2018-09-30 06:09] LABS: ANION GAP 8 (5-13); BLOOD UREA NITROGEN 72 mg/dl (7-20); CALCIUM 8.7 mg/dl (8.4-10.2); CARBON DIOXIDE 27 mmol/L (21-31); CHLORIDE 108 mmol/L (97-110); CREATININE 3.14 mg/dl (0.61-1.24); Estimated GFR 20 mL/min (>60); GLUCOSE 137 mg/dl (70-220); SODIUM 143 mmol/L (135-144)
[2018-09-30] MEDS: LANSOPRAZOLE 30 MG CAP PO (06:52)
[2018-09-30] MEDS: BUMETANIDE 1 MG INJ IV ×2 (06:52→17:57)
[2018-09-30] MEDS: CALCITRIOL 0.25 MCG CAP PO (08:21)
[2018-09-30] MEDS: GABAPENTIN 300 MG CAP PO (08:21)
[2018-09-30] MEDS: AMLODIPINE 10 MG TAB PO (08:22)
[2018-09-30] MEDS: ASPIRIN (EC) 81 MG TAB PO (08:22)
[2018-09-30] MEDS: FOLIC ACID 1 MG TAB PO (08:22)
[2018-09-30] MEDS: ATENOLOL 50 MG TAB PO (08:22)
[2018-09-30] MEDS: SEVELAMER CARBONATE 800 MG TABLET PO ×3 (08:22→17:56)
[2018-09-30] MEDS: FERROUS SULFATE (EC) 325 MG TAB PO (08:22)
[2018-09-30] MEDS: HEPARIN 5,000 UNIT/1 ML VIAL SC ×2 (08:33→23:26)
[2018-09-30] MEDS: INSULIN ASPART [NOVOLOG] 3 ML PEN SC ×3 (08:33→18:07)
[2018-09-30] MEDS: Insulin NOVOLOG SS MILD Algorithm (SS with meals and bedtime) SC ×4 (08:34→22:54)
[2018-09-30] MEDS: HEPARIN 1000 UNITS/ML 10 ML INJ CATHETER (22:12)
[2018-09-30] MEDS: LEVOFLOXACIN 500MG/D5W (PMX) 100 ML IVPB (22:55)
[2018-09-30] MEDS: ATORVASTATIN 10 MG TAB PO (22:56)
[2018-10-01] MEDS: LANSOPRAZOLE 30 MG CAP PO (06:00)
[2018-10-01] MEDS: BUMETANIDE 1 MG INJ IV (06:00)
[2018-10-01 06:04] LABS: ADD MAN DIFF? NO
[2018-10-01 06:09] LABS: BASOPHILS % 0.9 % (0.0-2.0); EOSINOPHILS # 0.2 10^3/ul (0.0-0.5); EOSINOPHILS % 4.1 % (0.0-7.0); HEMATOCRIT 31.8 % (42.0-52.0); HEMOGLOBIN 10.1 g/dl (14.0-18.0); LYMPHOCYTES # 0.9 10^3/ul (0.8-2.9); LYMPHOCYTES % 18.5 % (15.0-51.0); MEAN CORPUSCULAR HEMOGLOBIN 30.1 pg (29.0-33.0); MEAN CORPUSCULAR HGB CONC 31.8 g/dl (32.0-37.0); MEAN CORPUSCULAR VOLUME 94.9 fl (82.0-101.0); MEAN PLATELET VOLUME 10.5 fl (7.4-10.4); MONOCYTE # 0.6 10^3/ul (0.3-0.9); MONOCYTES % 12.4 % (0.0-11.0); NEUTROPHIL # 2.9 10^3/ul (1.6-7.5); NEUTROPHILS % 63.7 % (39.0-77.0); PLATELET COUNT 166 10^3/UL (140-415); RED BLOOD COUNT 3.35 10^6/ul (4.70-6.10); RED CELL DISTRIBUTION WIDTH 16.4 % (11.5-14.5)
[2018-10-01 06:09] LABS: WHITE BLOOD COUNT 4.6 10^3/ul (4.8-10.8)
[2018-10-01 06:26] LABS: ANION GAP 7 (5-13); BLOOD UREA NITROGEN 45 mg/dl (7-20); CALCIUM 8.9 mg/dl (8.4-10.2); CARBON DIOXIDE 27 mmol/L (21-31); CHLORIDE 107 mmol/L (97-110); CREATININE 3.01 mg/dl (0.61-1.24); Estimated GFR 21 mL/min (>60); GLUCOSE 119 mg/dl (70-220); POTASSIUM 4.3 mmol/L (3.5-5.1); SODIUM 141 mmol/L (135-144)
[2018-10-01] MEDS: FOLIC ACID 1 MG TAB PO (08:51)
[2018-10-01] MEDS: FERROUS SULFATE (EC) 325 MG TAB PO (08:52)
[2018-10-01] MEDS: GABAPENTIN 300 MG CAP PO (08:52)
[2018-10-01] MEDS: AMLODIPINE 10 MG TAB PO (08:52)
[2018-10-01] MEDS: ASPIRIN (EC) 81 MG TAB PO (08:52)
[2018-10-01] MEDS: ATENOLOL 50 MG TAB PO (08:52)
[2018-10-01] MEDS: Insulin NOVOLOG SS MILD Algorithm (SS with meals and bedtime) SC ×4 (08:54→20:34)
[2018-10-01] MEDS: INSULIN ASPART [NOVOLOG] 3 ML PEN SC ×2 (08:55→17:45)
[2018-10-01] MEDS: HEPARIN 5,000 UNIT/1 ML VIAL SC ×2 (08:55→21:00)
[2018-10-01] MEDS: SEVELAMER CARBONATE 800 MG TABLET PO ×3 (08:57→17:43)
[2018-10-01] MEDS: CALCITRIOL 0.25 MCG CAP PO (10:34)
[2018-10-01] MEDS: LINAGLIPTIN 5 MG TABLET PO (12:44)
[2018-10-01 14:15] LABS: HEPATITIS C VIRAL ANTIBODY NEGATIVE (NEGATIVE)
[2018-10-01 14:58] LABS: RAPID PLASMA REAGIN NONREACTIVE (NR)
[2018-10-01] MEDS: EPOETIN ALFA-EPBX (ESRD) 10,000 UNIT/ML VIAL SC (18:17)
[2018-10-01] MEDS: GABAPENTIN 400 MG CAP PO (20:32)
[2018-10-01] MEDS: ATORVASTATIN 10 MG TAB PO (20:32)
[2018-10-02] MEDS: HEPARIN 1000 UNITS/ML 10 ML INJ CATHETER (02:03)
[2018-10-02 05:25] LABS: ADD MAN DIFF? NO
[2018-10-02 05:36] LABS: WHITE BLOOD COUNT 6.2 10^3/ul (4.8-10.8)
[2018-10-02 05:36] LABS: BASOPHIL # 0.1 10^3/ul (0.0-0.1); EOSINOPHILS # 0.2 10^3/ul (0.0-0.5); EOSINOPHILS % 3.7 % (0.0-7.0); HEMATOCRIT 33.1 % (42.0-52.0); HEMOGLOBIN 10.6 g/dl (14.0-18.0); LYMPHOCYTES # 0.9 10^3/ul (0.8-2.9); LYMPHOCYTES % 14.3 % (15.0-51.0); MEAN CORPUSCULAR HEMOGLOBIN 30.2 pg (29.0-33.0); MEAN CORPUSCULAR VOLUME 94.3 fl (82.0-101.0); MEAN PLATELET VOLUME 10.5 fl (7.4-10.4); MONOCYTE # 0.6 10^3/ul (0.3-0.9); MONOCYTES % 10.4 % (0.0-11.0); NEUTROPHIL # 4.3 10^3/ul (1.6-7.5); NEUTROPHILS % 70.1 % (39.0-77.0); PLATELET COUNT 182 10^3/UL (140-415); RED BLOOD COUNT 3.51 10^6/ul (4.70-6.10); RED CELL DISTRIBUTION WIDTH 16.2 % (11.5-14.5)
[2018-10-02] MEDS: LANSOPRAZOLE 30 MG CAP PO (05:58)
[2018-10-02 06:24] LABS: IONIZED CALCIUM 1.1 mmol/L (1.1-1.4)
[2018-10-02 06:24] LABS: ANION GAP 6 (5-13); BLOOD UREA NITROGEN 25 mg/dl (7-20); CALCIUM 8.8 mg/dl (8.4-10.2); CARBON DIOXIDE 31 mmol/L (21-31); CHLORIDE 100 mmol/L (97-110); CREATININE 2.19 mg/dl (0.61-1.24); Estimated GFR 30 mL/min (>60); GLUCOSE 134 mg/dl (70-220); SODIUM 137 mmol/L (135-144)
[2018-10-02] MEDS: Insulin NOVOLOG SS MILD Algorithm (SS with meals and bedtime) SC ×4 (07:00→20:52)
[2018-10-02] MEDS: SEVELAMER CARBONATE 800 MG TABLET PO ×3 (07:49→17:29)
[2018-10-02] MEDS: ASPIRIN (EC) 81 MG TAB PO (07:49)
[2018-10-02] MEDS: ATENOLOL 50 MG TAB PO (07:50)
[2018-10-02] MEDS: FOLIC ACID 1 MG TAB PO (07:50)
[2018-10-02] MEDS: CALCITRIOL 0.25 MCG CAP PO (07:51)
[2018-10-02] MEDS: FERROUS SULFATE (EC) 325 MG TAB PO (07:51)
[2018-10-02] MEDS: LINAGLIPTIN 5 MG TABLET PO (07:51)
[2018-10-02] MEDS: INSULIN ASPART [NOVOLOG] 3 ML PEN SC ×3 (07:54→17:34)
[2018-10-02] MEDS: HEPARIN 5,000 UNIT/1 ML VIAL SC ×2 (07:55→20:55)
[2018-10-02] MEDS: AMLODIPINE 5 MG TAB PO (08:01)
[2018-10-02 10:39] LABS: PARATHYROID HORMONE 227.7 pg/ml (24.0-73.0)
[2018-10-02 20:03] LABS: HEPATITIS B CORE ANTIBODY NEGATIVE (NEGATIVE)
[2018-10-02] MEDS: ATORVASTATIN 10 MG TAB PO (20:51)
[2018-10-02] MEDS: GABAPENTIN 400 MG CAP PO (20:51)
[2018-10-02] MEDS: LEVOFLOXACIN 500MG/D5W (PMX) 100 ML IVPB (20:52)
[2018-10-03] MEDS: LANSOPRAZOLE 30 MG CAP PO (05:46)
[2018-10-03 05:49] LABS: ADD MAN DIFF? NO
[2018-10-03 05:58] LABS: BASOPHIL # 0.1 10^3/ul (0.0-0.1); BASOPHILS % 1.1 % (0.0-2.0); EOSINOPHILS # 0.3 10^3/ul (0.0-0.5); HEMATOCRIT 33.2 % (42.0-52.0); HEMOGLOBIN 10.5 g/dl (14.0-18.0); LYMPHOCYTES # 1.1 10^3/ul (0.8-2.9); LYMPHOCYTES % 20.6 % (15.0-51.0); MEAN CORPUSCULAR HGB CONC 31.6 g/dl (32.0-37.0); MEAN CORPUSCULAR VOLUME 94.9 fl (82.0-101.0); MEAN PLATELET VOLUME 10.7 fl (7.4-10.4); MONOCYTE # 0.6 10^3/ul (0.3-0.9); NEUTROPHIL # 3.2 10^3/ul (1.6-7.5); NEUTROPHILS % 60.9 % (39.0-77.0); PLATELET COUNT 161 10^3/UL (140-415); RED CELL DISTRIBUTION WIDTH 16.1 % (11.5-14.5)
[2018-10-03 05:58] LABS: WHITE BLOOD COUNT 5.3 10^3/ul (4.8-10.8)
[2018-10-03 06:25] LABS: ANION GAP 9 (5-13); BLOOD UREA NITROGEN 46 mg/dl (7-20); CALCIUM 8.6 mg/dl (8.4-10.2); CARBON DIOXIDE 30 mmol/L (21-31); CHLORIDE 99 mmol/L (97-110); CREATININE 3.52 mg/dl (0.61-1.24); Estimated GFR 18 mL/min (>60); GLUCOSE 124 mg/dl (70-220); POTASSIUM 4.4 mmol/L (3.5-5.1); SODIUM 138 mmol/L (135-144)
[2018-10-03] MEDS: Insulin NOVOLOG SS MILD Algorithm (SS with meals and bedtime) SC ×4 (07:00→21:00)
[2018-10-03] MEDS: ATENOLOL 50 MG TAB PO (09:00)
[2018-10-03] MEDS: AMLODIPINE 5 MG TAB PO (09:00)
[2018-10-03] MEDS: HEPARIN 5,000 UNIT/1 ML VIAL SC ×2 (09:00→21:04)
[2018-10-03] MEDS: ASPIRIN (EC) 81 MG TAB PO (09:00)
[2018-10-03] MEDS: SEVELAMER CARBONATE 800 MG TABLET PO ×3 (09:04→17:41)
[2018-10-03] MEDS: CALCITRIOL 0.25 MCG CAP PO (09:04)
[2018-10-03] MEDS: FOLIC ACID 1 MG TAB PO (09:05)
[2018-10-03] MEDS: LINAGLIPTIN 5 MG TABLET PO (09:05)
[2018-10-03] MEDS: FERROUS SULFATE (EC) 325 MG TAB PO (09:05)
[2018-10-03] MEDS: INSULIN ASPART [NOVOLOG] 3 ML PEN SC ×3 (09:11→17:42)
[2018-10-03] MEDS: HEPARIN 1000 UNITS/ML 10 ML INJ CATHETER (10:33)
[2018-10-03] MEDS: hydrOXYzine HCL 25 MG TAB PO (13:03)
[2018-10-03] MEDS: ATORVASTATIN 10 MG TAB PO (21:06)
[2018-10-03] MEDS: GABAPENTIN 400 MG CAP PO (21:06)
[2018-10-04] MEDS: LANSOPRAZOLE 30 MG CAP PO (05:52)
[2018-10-04 05:56] LABS: ADD MAN DIFF? NO
[2018-10-04 05:59] LABS: WHITE BLOOD COUNT 6.5 10^3/ul (4.8-10.8)
[2018-10-04 05:59] LABS: BASOPHILS % 0.6 % (0.0-2.0); EOSINOPHILS # 0.3 10^3/ul (0.0-0.5); EOSINOPHILS % 4.5 % (0.0-7.0); HEMATOCRIT 33.7 % (42.0-52.0); HEMOGLOBIN 10.6 g/dl (14.0-18.0); LYMPHOCYTES % 15.9 % (15.0-51.0); MEAN CORPUSCULAR HEMOGLOBIN 30.7 pg (29.0-33.0); MEAN CORPUSCULAR HGB CONC 31.5 g/dl (32.0-37.0); MEAN CORPUSCULAR VOLUME 97.7 fl (82.0-101.0); MEAN PLATELET VOLUME 10.7 fl (7.4-10.4); MONOCYTE # 0.8 10^3/ul (0.3-0.9); MONOCYTES % 12.2 % (0.0-11.0); NEUTROPHIL # 4.3 10^3/ul (1.6-7.5); NEUTROPHILS % 66.3 % (39.0-77.0); PLATELET COUNT 167 10^3/UL (140-415); RED BLOOD COUNT 3.45 10^6/ul (4.70-6.10)
[2018-10-04 06:28] LABS: ANION GAP 9 (5-13); BLOOD UREA NITROGEN 35 mg/dl (7-20); CALCIUM 8.4 mg/dl (8.4-10.2); CARBON DIOXIDE 28 mmol/L (21-31); CHLORIDE 103 mmol/L (97-110); CREATININE 3.01 mg/dl (0.61-1.24); Estimated GFR 21 mL/min (>60); GLUCOSE 162 mg/dl (70-220); SODIUM 140 mmol/L (135-144)
[2018-10-04 06:29] LABS: PHOSPHORUS 3.5 mg/dl (2.5-4.9)
[2018-10-04 06:29] LABS: MAGNESIUM 2.1 mg/dl (1.7-2.5)
[2018-10-04 06:37] LABS: POTASSIUM 4.2 mmol/L (3.5-5.1)
[2018-10-04] MEDS: Insulin NOVOLOG SS MILD Algorithm (SS with meals and bedtime) SC ×4 (08:15→20:54)
[2018-10-04] MEDS: INSULIN ASPART [NOVOLOG] 3 ML PEN SC ×3 (08:16→17:22)
[2018-10-04] MEDS: LINAGLIPTIN 5 MG TABLET PO (08:19)
[2018-10-04] MEDS: ASPIRIN (EC) 81 MG TAB PO (09:34)
[2018-10-04] MEDS: FERROUS SULFATE (EC) 325 MG TAB PO (09:34)
[2018-10-04] MEDS: SEVELAMER CARBONATE 800 MG TABLET PO ×3 (09:35→17:19)
[2018-10-04] MEDS: AMLODIPINE 5 MG TAB PO (09:35)
[2018-10-04] MEDS: FOLIC ACID 1 MG TAB PO (09:35)
[2018-10-04] MEDS: ATENOLOL 50 MG TAB PO (09:35)
[2018-10-04] MEDS: HEPARIN 5,000 UNIT/1 ML VIAL SC ×2 (09:38→20:55)
[2018-10-04] MEDS: CALCITRIOL 0.25 MCG CAP PO (09:41)
[2018-10-04] MEDS: GABAPENTIN 400 MG CAP PO (20:52)
[2018-10-04] MEDS: ATORVASTATIN 10 MG TAB PO (20:52)
[2018-10-05] MEDS: LANSOPRAZOLE 30 MG CAP PO (06:04)
[2018-10-05 06:30] LABS: ADD MAN DIFF? NO
[2018-10-05 06:34] LABS: BASOPHIL # 0.1 10^3/ul (0.0-0.1); EOSINOPHILS # 0.3 10^3/ul (0.0-0.5); EOSINOPHILS % 4.5 % (0.0-7.0); HEMATOCRIT 33.4 % (42.0-52.0); HEMOGLOBIN 10.7 g/dl (14.0-18.0); LYMPHOCYTES # 1.2 10^3/ul (0.8-2.9); LYMPHOCYTES % 18.3 % (15.0-51.0); MEAN CORPUSCULAR HEMOGLOBIN 31.1 pg (29.0-33.0); MEAN CORPUSCULAR VOLUME 97.1 fl (82.0-101.0); MEAN PLATELET VOLUME 10.6 fl (7.4-10.4); MONOCYTE # 0.6 10^3/ul (0.3-0.9); MONOCYTES % 9.4 % (0.0-11.0); NEUTROPHIL # 4.2 10^3/ul (1.6-7.5); NEUTROPHILS % 66.3 % (39.0-77.0); PLATELET COUNT 168 10^3/UL (140-415); RED BLOOD COUNT 3.44 10^6/ul (4.70-6.10); RED CELL DISTRIBUTION WIDTH 15.7 % (11.5-14.5)
[2018-10-05 06:34] LABS: WHITE BLOOD COUNT 6.3 10^3/ul (4.8-10.8)
[2018-10-05 06:59] LABS: ANION GAP 8 (5-13); BLOOD UREA NITROGEN 49 mg/dl (7-20); CALCIUM 8.9 mg/dl (8.4-10.2); CARBON DIOXIDE 26 mmol/L (21-31); CHLORIDE 104 mmol/L (97-110); CREATININE 3.77 mg/dl (0.61-1.24); Estimated GFR 16 mL/min (>60); GLUCOSE 183 mg/dl (70-220); POTASSIUM 4.4 mmol/L (3.5-5.1); SODIUM 138 mmol/L (135-144)
[2018-10-05 07:04] LABS: PHOSPHORUS 3.9 mg/dl (2.5-4.9)
[2018-10-05 07:04] LABS: MAGNESIUM 2.2 mg/dl (1.7-2.5)
[2018-10-05] MEDS: Insulin NOVOLOG SS MILD Algorithm (SS with meals and bedtime) SC ×3 (07:58→17:28)
[2018-10-05] MEDS: INSULIN ASPART [NOVOLOG] 3 ML PEN SC ×3 (07:59→17:28)
[2018-10-05] MEDS: HEPARIN 5,000 UNIT/1 ML VIAL SC (08:01)
[2018-10-05] MEDS: CALCITRIOL 0.25 MCG CAP PO (08:25)
[2018-10-05] MEDS: SEVELAMER CARBONATE 800 MG TABLET PO ×3 (08:25→17:26)
[2018-10-05] MEDS: FOLIC ACID 1 MG TAB PO (08:25)
[2018-10-05] MEDS: ASPIRIN (EC) 81 MG TAB PO (08:25)
[2018-10-05] MEDS: LINAGLIPTIN 5 MG TABLET PO (08:25)
[2018-10-05] MEDS: FERROUS SULFATE (EC) 325 MG TAB PO (08:25)
[2018-10-05] MEDS: AMLODIPINE 5 MG TAB PO (08:27)
[2018-10-05] MEDS: ATENOLOL 50 MG TAB PO (08:27)
[2018-10-05] MEDS: HEPARIN 1000 UNITS/ML 10 ML INJ CATHETER (12:18)
== END 2018-10-05 20:25 | disposition home or self-care (01) | DRG 291 ==
LOC: 2NE 10-01 04:06 → E/R 15:41 → 6WM 20:19
PROC: 02H633Z Insertion of Infusion Device into Right Atrium, Percutaneous Approach (ICD-10-PCS; principal; 2018-09-29 13:00)
PROC: B543ZZA Ultrasonography of Right Jugular Veins, Guidance (ICD-10-PCS; 2018-09-29 13:00)
PROC: B513ZZA Fluoroscopy of Right Jugular Veins, Guidance (ICD-10-PCS; 2018-09-29 13:00)
PROC: 5A1D70Z Performance of Urinary Filtration, Intermittent, Less than 6 Hours Per Day (ICD-10-PCS; 2018-09-29 13:58)
DX: I13.2 Hypertensive heart and chronic kidney disease with heart failure and with stage 5 chronic kidney disease, or end stage renal disease (principal); J96.01 Acute respiratory failure with hypoxia; N18.6 End stage renal disease; N17.9 Acute kidney failure, unspecified; E87.2 Acidosis; I50.32 Chronic diastolic (congestive) heart failure; E87.79 Other fluid overload; E11.69 Type 2 diabetes mellitus with other specified complication; E78.5 Hyperlipidemia, unspecified; D50.9 Iron deficiency anemia, unspecified; E11.22 Type 2 diabetes mellitus with diabetic chronic kidney disease; E11.42 Type 2 diabetes mellitus with diabetic polyneuropathy; E78.00 Pure hypercholesterolemia, unspecified; D63.1 Anemia in chronic kidney disease; Z79.4 Long term (current) use of insulin; Z79.82 Long term (current) use of aspirin
CPT/HCPCS: 36415; 71045; 80048; 80053; 80061; 81001; 82330; 82962; 83036; 83690; 83735; 83970; 84100; 84439; 84443; 84484; 85025; 85610; 85730; 86592; 86704; 86706; 86708; 86803; 87081; 87340; 90935; 93005; 97110; 97116; 97161; 97530; 99285-25

== ENCOUNTER 2018-10-16 14:31 | Emergency (ER) | payer OTHER, MEDICAID ==
[2018-10-16] MEDS: KETOROLAC 30 MG INJ IM (15:21)
[2018-10-16] MEDS: morphine 2 MG INJ IM (15:21)
[2018-10-16] MEDS: traMADol 50 MG TAB PO (15:21)
== END 2018-10-16 18:07 | disposition home or self-care (01) ==
LOC: FTE 14:31
DX: S52.502A Unspecified fracture of the lower end of left radius, initial encounter for closed fracture (principal); E11.22 Type 2 diabetes mellitus with diabetic chronic kidney disease; S80.01XA Contusion of right knee, initial encounter; I12.0 Hypertensive chronic kidney disease with stage 5 chronic kidney disease or end stage renal disease; N18.5 Chronic kidney disease, stage 5; W01.0XXA Fall on same level from slipping, tripping and stumbling without subsequent striking against object, initial encounter; Y92.9 Unspecified place or not applicable; Z79.4 Long term (current) use of insulin; Z79.82 Long term (current) use of aspirin
CPT/HCPCS: 29125; 73110-LT; 73562; 96372; 99284-25

== ENCOUNTER 2018-12-26 08:18 | Emergency (ER) | payer OTHER, MEDICAID ==
[2018-12-26 09:01] LABS: ADD MAN DIFF? NO
[2018-12-26 09:03] LABS: WHITE BLOOD COUNT 4.7 10^3/ul (4.8-10.8)
[2018-12-26 09:03] LABS: BASOPHILS % 0.6 % (0.0-2.0); EOSINOPHILS # 0.2 10^3/ul (0.0-0.5); EOSINOPHILS % 3.4 % (0.0-7.0); HEMATOCRIT 30.2 % (42.0-52.0); HEMOGLOBIN 9.9 g/dl (14.0-18.0); LYMPHOCYTES # 1.6 10^3/ul (0.8-2.9); LYMPHOCYTES % 33.4 % (15.0-51.0); MEAN CORPUSCULAR HEMOGLOBIN 32.2 pg (29.0-33.0); MEAN CORPUSCULAR HGB CONC 32.8 g/dl (32.0-37.0); MEAN CORPUSCULAR VOLUME 98.4 fl (82.0-101.0); MEAN PLATELET VOLUME 10.4 fl (7.4-10.4); MONOCYTE # 0.4 10^3/ul (0.3-0.9); MONOCYTES % 7.6 % (0.0-11.0); NEUTROPHIL # 2.6 10^3/ul (1.6-7.5); NEUTROPHILS % 54.8 % (39.0-77.0); PLATELET COUNT 111 10^3/UL (140-415); RED BLOOD COUNT 3.07 10^6/ul (4.70-6.10); RED CELL DISTRIBUTION WIDTH 13.6 % (11.5-14.5)
[2018-12-26 09:26] LABS: ANION GAP 8 (5-13); BLOOD UREA NITROGEN 56 mg/dl (7-20); CALCIUM 8.9 mg/dl (8.4-10.2); CARBON DIOXIDE 29 mmol/L (21-31); CHLORIDE 101 mmol/L (97-110); Estimated GFR 13 mL/min (>60); GLUCOSE 156 mg/dl (70-220); POTASSIUM 4.1 mmol/L (3.5-5.1); SODIUM 138 mmol/L (135-144)
[2018-12-26 09:46] LABS: INR 0.96; PARTIAL THROMBOPLASTIN TIME 26.1 Sec (23.0-35.0); PROTIME 12.9 Sec (11.9-14.9)
== END 2018-12-26 11:00 | disposition home or self-care (01) ==
LOC: E/R 08:18
DX: T82.9XXA Unspecified complication of cardiac and vascular prosthetic device, implant and graft, initial encounter (principal); E11.22 Type 2 diabetes mellitus with diabetic chronic kidney disease; I12.0 Hypertensive chronic kidney disease with stage 5 chronic kidney disease or end stage renal disease; N18.5 Chronic kidney disease, stage 5; Y82.9 Unspecified medical devices associated with adverse incidents; Z79.4 Long term (current) use of insulin; Z79.82 Long term (current) use of aspirin; Z99.2 Dependence on renal dialysis
CPT/HCPCS: 36415; 71045; 80048; 85025; 85610; 85730; 93005; 99285-25

== ENCOUNTER 2018-12-27 07:14 | Emergency (ER) | payer OTHER, MEDICAID ==
[2018-12-27 08:04] LABS: ADD MAN DIFF? NO
[2018-12-27 08:06] LABS: WHITE BLOOD COUNT 5.3 10^3/ul (4.8-10.8)
[2018-12-27 08:06] LABS: BASOPHILS % 0.8 % (0.0-2.0); EOSINOPHILS # 0.2 10^3/ul (0.0-0.5); EOSINOPHILS % 3.8 % (0.0-7.0); HEMATOCRIT 31.3 % (42.0-52.0); HEMOGLOBIN 10.1 g/dl (14.0-18.0); LYMPHOCYTES # 1.6 10^3/ul (0.8-2.9); LYMPHOCYTES % 29.7 % (15.0-51.0); MEAN CORPUSCULAR HEMOGLOBIN 31.7 pg (29.0-33.0); MEAN CORPUSCULAR HGB CONC 32.3 g/dl (32.0-37.0); MEAN CORPUSCULAR VOLUME 98.1 fl (82.0-101.0); MEAN PLATELET VOLUME 10.3 fl (7.4-10.4); MONOCYTE # 0.4 10^3/ul (0.3-0.9); MONOCYTES % 7.2 % (0.0-11.0); NEUTROPHIL # 3.1 10^3/ul (1.6-7.5); NEUTROPHILS % 58.3 % (39.0-77.0); PLATELET COUNT 129 10^3/UL (140-415); RED BLOOD COUNT 3.19 10^6/ul (4.70-6.10); RED CELL DISTRIBUTION WIDTH 13.5 % (11.5-14.5)
[2018-12-27 08:26] LABS: INR 0.94; PROTIME 12.7 Sec (11.9-14.9)
[2018-12-27 08:27] LABS: PARTIAL THROMBOPLASTIN TIME 26.3 Sec (23.0-35.0)
[2018-12-27 08:28] LABS: ANION GAP 8 (5-13); BLOOD UREA NITROGEN 61 mg/dl (7-20); CALCIUM 9.1 mg/dl (8.4-10.2); CARBON DIOXIDE 27 mmol/L (21-31); CHLORIDE 104 mmol/L (97-110); CREATININE 4.54 mg/dl (0.61-1.24); Estimated GFR 13 mL/min (>60); GLUCOSE 173 mg/dl (70-220); POTASSIUM 4.4 mmol/L (3.5-5.1); SODIUM 139 mmol/L (135-144)
[2018-12-27] MEDS ORDERED: LIDOCAINE 1% (MDV) 20 ML INJ (08:46)
[2018-12-27] MEDS ORDERED: HEPARIN 1000 UNITS/ML 10 ML INJ (08:57)
[2018-12-27] MEDS ORDERED: morphine 2 MG INJ (09:18)
== END 2018-12-27 12:56 | disposition home or self-care (01) ==
LOC: E/R 07:14
DX: T82.41XA Breakdown (mechanical) of vascular dialysis catheter, initial encounter (principal); I12.0 Hypertensive chronic kidney disease with stage 5 chronic kidney disease or end stage renal disease; N18.6 End stage renal disease; E11.22 Type 2 diabetes mellitus with diabetic chronic kidney disease; Y82.9 Unspecified medical devices associated with adverse incidents; Z79.4 Long term (current) use of insulin; Z79.82 Long term (current) use of aspirin; Z99.2 Dependence on renal dialysis
CPT/HCPCS: 36415; 36581; 80048; 85025; 85610; 85730; 93005; 99285-25